=== PATIENT | female | born 1945 | race Asian ===

== ENCOUNTER → 2017-04-12 | Outpatient (CLI) | payer MEDICARE ==
[~2017-04-12] MED LIST: AMLO10TA2 PO; ESTR1TAB15 PO; IRBE150T25 PO; NORE5TAB2 PO; OMEG-76 PO; PLAN450T PO; RED600CA2 PO; REGADENOSON 0.4 MG/5 ML SYRINGE ONE
== END | disposition home or self-care (01) ==
LOC: RAD 11:59
PROVIDERS: ATTEND Internal Medicine Cardiovascular Disease
DX: R07.9 Chest pain, unspecified (principal)
CPT/HCPCS: 78452; 93017; A9502; J2785

== ENCOUNTER → 2017-04-13 | Outpatient (CLI) | payer MEDICARE ==
[~2017-04-13] MED LIST changes: -REGADENOSON 0.4 MG/5 ML SYRINGE ONE
[2017-04-13 11:22] LABS: BASOPHILS # (AUTO) 0.05 x10^3/uL (0-0.1); BASOPHILS % (AUTO) 1 % (0-1); EOSINOPHILS # (AUTO) 0.12 x10^3/uL (0-0.4); EOSINOPHILS % (AUTO) 2 % (1-7); LYMPHOCYTES # (AUTO) 1.57 x10^3/uL (1-3.4); LYMPHOCYTES % (AUTO) 25 % (22-44); MD NO; MEAN CORPUSCULAR HEMOGLOBIN 31.1 pg (27.0-34.8); MEAN CORPUSCULAR HGB CONC 33.8 g/dL (32.4-35.8); MEAN PLATELET VOLUME 8.1 fL (7.4-10.4); MONOCYTES # (AUTO) 0.39 x10^3/uL (0.2-0.8); MONOCYTES % (AUTO) 6 % (2-9); NEUTROPHILS # (AUTO) 4.22 x10^3/uL (1.8-6.8); NEUTROPHILS % (AUTO) 67 % (42-75); PLATELET COUNT 351 x10^3/uL (130-400); RED BLOOD COUNT 5.53 x10^6/uL (3.82-5.3); RED CELL DISTRIBUTION WIDTH 14.2 % (9.6-15.2)
[2017-04-13 11:30] LABS: INTERNATIONAL NORMALIZED RATIO 1.07 (0.93-1.1)
[2017-04-13 11:34] LABS: CALCIUM 9.2 mg/dL (8.5-10.1); CHLORIDE 109 mmol/L (98-107)
[2017-04-13 11:39] LABS: ALANINE AMINOTRANSFERASE 23 U/L (12-78); ALBUMIN 3.7 g/dL (3.4-5.0); ALKALINE PHOSPHATASE 78 U/L (45-117); ANION GAP 5 mmol/L (5-15); BILIRUBIN,TOTAL 0.8 mg/dL (0.2-1.0); TOTAL PROTEIN 7.8 g/dL (6.4-8.2)
[2017-04-13 11:39] LABS: CULTURE INDICATED? YES; MICROSCOPIC INDICATED
== END | disposition home or self-care (01) ==
LOC: STAR 10:14
PROVIDERS: ATTEND Neurological Surgery
DX: Z01.818 Encounter for other preprocedural examination (principal); M48.061 Spinal stenosis, lumbar region without neurogenic claudication; R94.31 Abnormal electrocardiogram [ECG] [EKG]; I10 Essential (primary) hypertension
CPT/HCPCS: 36415; 71046; 80053; 81001; 85025; 85610; 85730; 87086; 93005

== ENCOUNTER 2017-04-25 10:35 | Observation (INO) | payer MEDICARE ==
[~2017-04-25] VITALS: Ht 157.5 cm; Wt 64.5 kg
[~2017-04-25 10:35] MED LIST changes: +BACITRACIN 50,000 UNIT ONE; +BUPIVACAINE/PF 0.5% ONE; +THROMBIN 5,000 UNIT VIAL TP ONE
[2017-04-25] MEDS ORDERED: SUCCINYLCHOLINE 20 MG/ML, 10ML ONE (10:45)
[2017-04-25] MEDS ORDERED: ONDANSETRON 2MG/ML, 2ML ONE (10:45)
[2017-04-25] MEDS ORDERED: CEFAZOLIN 1,000 MG ONE (10:45)
[2017-04-25] MEDS ORDERED: PROPOFOL 10 MG/ML, 20ML ONE (10:45)
[2017-04-25] MEDS ORDERED: ROCURONIUM 10 MG/ML,10ML ONE (10:45)
[2017-04-25] MEDS ORDERED: DEXAMETHASONE 4 MG/ML, 1ML ONE (10:45)
[2017-04-25] MEDS ORDERED: LACTATED RINGERS 1,000 ML IV SCH (11:02)
[2017-04-25] MEDS ORDERED: MELO7.5T31 PO (11:05)
[2017-04-25] MEDS ORDERED: LIDOCAINE-MPF 1%, 2ML ONE (11:09)
[2017-04-25] MEDS ORDERED: LIDOCAINE 1%, 2ML SQ PRN (11:30)
[2017-04-25] MEDS ORDERED: MIDAZOLAM 1 MG/ML, 2ML ONE (13:13)
[2017-04-25] MEDS ORDERED: FENTANYL PF 250 MCG/5ML ONE (13:14)
[2017-04-25] MEDS ORDERED: BUPIVACAINE/PF 0.5% ONE (13:42)
[2017-04-25] MEDS ORDERED: EPINEPHRINE 1 MG/ML, 1ML INFIL ONE (14:35)
[2017-04-25] MEDS ORDERED: HYDROmorphone 1 MG/ML, 1ML IV PRN (15:00)
[2017-04-25] MEDS ORDERED: LABETALOL 5MG/ML, 20ML IV PRN (15:00)
[2017-04-25] MEDS ORDERED: METOPROLOL 1 MG/ML, 5ML IV PRN (15:00)
[2017-04-25] MEDS ORDERED: hydrALAzine 20 MG/ML, 1ML IV PRN (15:00)
[2017-04-25] MEDS ORDERED: OXYcodone 5 MG/5 ML ORAL.SOL UDC PO PRN (15:00)
[2017-04-25] MEDS ORDERED: ACETAMINOPHEN 325 MG TABLET PO PRN (15:00)
[2017-04-25] MEDS ORDERED: PROMETHAZINE 25 MG/ML, 1ML IV PRN (15:00)
[2017-04-25] MEDS ORDERED: MIDAZOLAM 1 MG/ML, 2ML IV PRN (15:00)
[2017-04-25] MEDS ORDERED: MEPERIDINE/PF 25MG/0.5ML IVPush PRN (15:00)
[2017-04-25] MEDS ORDERED: HYDROcodone/APAP 7.5-325MG/15ML UDC PO PRN (15:00)
[2017-04-25] MEDS ORDERED: DIAZEPAM 5 MG/ML, 2ML IVPush PRN (15:00)
[2017-04-25] MEDS ORDERED: PROMETHAZINE 12.5 MG SUPP PR PRN (15:00)
[2017-04-25] MEDS ORDERED: EPHEDRINE 50 MG/ML, 1ML IVPush PRN (15:00)
[2017-04-25] MEDS ORDERED: FENTANYL PF 100 MCG/2ML IV PRN (15:00)
[2017-04-25] MEDS ORDERED: ALBUTEROL SULFATE 2.5 MG/3 ML NPPB PRN (15:00)
[2017-04-25] MEDS ORDERED: ONDANSETRON 2MG/ML, 2ML IVPush PRN ×2 (15:00→16:00)
[2017-04-25] MEDS ORDERED: HYDROmorphone PCA 30 MG/30 ML ONE (15:56)
[2017-04-25] MEDS ORDERED: MEPERIDINE/PF 100 MG/ML IM PRN (16:00)
[2017-04-25] MEDS ORDERED: PROMETHAZINE 25 MG/ML, 1ML IM PRN (16:00)
[2017-04-25] MEDS ORDERED: BISACODYL 10 MG SUPP PR PRN (16:00)
[2017-04-25] MEDS ORDERED: SCOPOLAMINE PATCH, 1.5MG PATCH.TD72 TD SCH (16:00)
[2017-04-25] MEDS ORDERED: TIZANIDINE 4MG TABLET PO PRN (16:00)
[2017-04-25] MEDS ORDERED: PHARMACY MAY ADJ FOR RENAL FX MC PRN (16:00)
[2017-04-25] MEDS ORDERED: MAGNESIUM HYDROXIDE 8%, 30ML UDC PO PRN (16:00)
[2017-04-25] MEDS ORDERED: HYDROmorphone PCA 30 MG/30 ML IV PRN (16:00)
[2017-04-25] MEDS ORDERED: DIPHENHYDRAMINE 50 MG/ML, 1ML IVPush PRN (16:00)
[2017-04-25] MEDS ORDERED: NS + 20MEQ KCL 1,000 ML IV SCH (16:00)
[2017-04-25] MEDS ORDERED: SCOPOLAMINE PATCH, 1.5MG PATCH.TD72 TD ONE (16:05)
[2017-04-25] MEDS ORDERED: OXYcodone 5 MG/5 ML ORAL.SOL UDC ONE (16:21)
[2017-04-25 17:55] VITALS: BP 90/55
[2017-04-25] MEDS ORDERED: CEFAZOLIN PMX 1GM/50ML 50 ML IVPB SCH (18:30)
[2017-04-25 18:35] VITALS: BP 100/65
[2017-04-25 19:30] VITALS: BP 113/58
[2017-04-25] MEDS: SODIUM CHLORIDE FLUSH 10ML SYR IVF SCH (19:37)
[2017-04-25 21:00] VITALS: BP 118/70
[2017-04-25] MEDS: CEFAZOLIN PMX 1GM/50ML 50 ML IVPB SCH (21:58)
[2017-04-25 23:59] VITALS: BP 105/69
[2017-04-26 03:37] VITALS: BP 108/60
[2017-04-26] MEDS: CEFAZOLIN PMX 1GM/50ML 50 ML IVPB SCH (05:48)
[2017-04-26 06:24] VITALS: BP 99/60
[2017-04-26] MEDS: SODIUM CHLORIDE FLUSH 10ML SYR IVF SCH (08:54)
[2017-04-26] MEDS ORDERED: AMLODIPINE 5 MG TABLET PO SCH (09:00)
[2017-04-26] MEDS ORDERED: IRBESARTAN 150 MG TABLET PO SCH (09:00)
[2017-04-26] MEDS ORDERED: SENNA/DOCUSATE TABLET PO SCH (09:00)
[2017-04-26] MEDS ORDERED: NORETHINDRONE ACETATE HOMEMEDPO SCH (09:00)
[2017-04-26] MEDS ORDERED: ESTRADIOL 1 MG TABLET PO SCH (09:00)
[2017-04-26] MEDS: OXYcodone/APAP 5/325MG TABLET PO PRN ×2 (09:06→13:19)
[2017-04-26] MEDS ORDERED: OXYC-302 PO (09:45)
[2017-04-26] MEDS ORDERED: TIZA2CAP2 PO (09:46)
[2017-04-26 11:57] VITALS: BP 105/68
[2017-04-26 13:45] VITALS: BP 106/65
== END 2017-04-26 14:30 | disposition home or self-care (01) ==
LOC: OUT 10:35 → ORIP 15:57 → 4NOR 17:39 → DCLOUNGE 04-26 14:08
PROVIDERS: ADMIT Neurological Surgery; ATTEND Neurological Surgery
DX: M48.061 Spinal stenosis, lumbar region without neurogenic claudication (principal); I10 Essential (primary) hypertension; M43.10 Spondylolisthesis, site unspecified; E78.00 Pure hypercholesterolemia, unspecified; M51.36 Other intervertebral disc degeneration, lumbar region
CPT/HCPCS: 63047; 69990; 72100; 96361; 96365; 96375; 97162; G0378; G8978; G8979; G8980; J0171; J0330; J0690; J1100; J1170; J2250; J2405; J2704; J3010; J3480; J3490; J7120